=== PATIENT | male | born 1965 ===

== ENCOUNTER 2023-02-26 07:57 | Outpatient (CLI) | payer OTHER ==
[2023-02-26 09:12] LABS: URINE APPEARANCE Clear; URINE BILIRRUBIN Negative (NEGATIVE); URINE BLOOD Negative; URINE COLOR Yellow; URINE GLUCOSE Negative (NEGATIVE); URINE LEUKOCYTE Negative; URINE NITRATE Negative; URINE PROTEIN Negative (NEGATIVE); URINE UROBILINOGEN 0.2 E.U./dl
[2023-02-26 09:13] LABS: HEMATOCRIT 44.9 % (39.0-48.0); HEMOGLOBIN 15.2 g/dL (13-16.00); MEAN CELL VOLUME 95.5 fL (80.0-100.00); MEAN CORPUSCULAR HEMOGLOBIN 32.5 pg (27.00-32.0); PLATELET COUNT 225 K/uL (150-450); RED CELL DISTRIBUTION WIDTH 12.1 % (11.5-14.5)
[2023-02-26 09:13] LABS: URINE EPITHELIAL CELLS 2.4 uL (0.0-38.8); URINE RBC 2.1 uL (0.0-20.8); URINE WBC 3.2 uL (0.0-23.2)
[2023-02-26 09:15] LABS: URINE BACTERIA 2.5 uL (0.0-1933)
[2023-02-26 09:45] LABS: BILIRUBIN TOTAL 0.82 mg/dL (0.3-1.2); CALCIUM 8.8 mg/dL (8.5-10.1); CHOL HDL RATIO 3.6 (0-5.0); CREATININE SERUM 0.99 mg/dL (0.70-1.30); GFR 77.11; GLOBULINA 2.9 G/DL (2.4-3.5); POTASSIUM 4.74 mEq/L (3.5-5.1); PROSTATIC SPECIFIC ANTIGEN 2.94 NG/ML (0.010-4.00); TOTAL PROTEIN 6.9 gm/dL (6.4-8.2); TSH 1.05 uIU/mL (0.358-3.74)
[2023-02-27 10:17] LABS: ob NEGATIVE (NEGATIVE)
== END 2023-02-26 08:25 | disposition home or self-care (01) ==
LOC: LAB 07:57
PROVIDERS: ATTEND Internal Medicine
DX: D64.9 Anemia, unspecified (principal); E11.9 Type 2 diabetes mellitus without complications; E78.00 Pure hypercholesterolemia, unspecified; N39.0 Urinary tract infection, site not specified; E03.8 Other specified hypothyroidism; Z12.11 Encounter for screening for malignant neoplasm of colon; R19.5 Other fecal abnormalities; E55.9 Vitamin D deficiency, unspecified; N18.2 Chronic kidney disease, stage 2 (mild); N40.0 Benign prostatic hyperplasia without lower urinary tract symptoms

== ENCOUNTER 2023-05-07 08:48 | Outpatient (CLI) | payer OTHER | END 2023-05-07 09:01 | disposition home or self-care (01) | LOC: TOM 08:48 | PROVIDERS: ATTEND Internal Medicine | DX: M54.50 Low back pain, unspecified (principal); G47.33 Obstructive sleep apnea (adult) (pediatric); I11.9 Hypertensive heart disease without heart failure; K63.5 Polyp of colon ==

== ENCOUNTER 2024-12-26 07:38 | Outpatient (CLI) | payer OTHER | END 2024-12-26 07:45 | disposition home or self-care (01) | LOC: RAD 07:38 | PROVIDERS: ATTEND Specialist | DX: N20.0 Calculus of kidney (principal) ==